=== PATIENT | female | born 1960 | race African-American/Black ===

== ENCOUNTER 2016-11-01 23:38 | Emergency (ER) | payer MEDICAID ==
[~2016-11-01] VITALS: Ht 170.2 cm; Wt 131.5 kg
[~2016-11-01 23:38] MED LIST: ELIMITE 5% CREA60 GM TOPIC; FLOXIN OTIC10 DROP LEFT EAR; HYDROCODON-ACE1 EA15 ORAL; IBUPROFEN600 MG ORAL; ILOTYCIN3.5 GM CONJUNC; NAPROSYN500 M1 ORAL; NEURONTIN100 MG ORAL; NKM; NORCO 5-325 TA1 EAC1 ORAL; POLYTRIM OP SOL10 ML OPHTHALM
[2016-11-01] MEDS ORDERED: NKM (23:50)
--- NOTE | 2016-11-02 00:07 | Emergency Room Report ---
History of Present Illness General Chief Complaint: Chest Pain Source: Patient Present Illness HPI This is a 56-year-old female with no past medical history she presents with chief complaint of cough congestion and chest pain. Onset for 7 days. She has no fever or chills. Denies any diaphoresis. Denies any radiation. Denies any exertional component. Worse with inspiration. Worse with lying flat. Allergies: Coded Allergies: PENICILLINS (Verified Allergy, Unknown, 11/01/16) Patient History Past Medical History: see triage record, old chart reviewed Past Surgical History: other Pertinent Family History: none Social History: Denies: smoking Last Menstrual Period: post menapausal Now: No Immunizations: other Reviewed Nursing Documentation: PMH: Agreed, PSxH: Agreed Nursing Documentation-PMH Past Medical History: No Stated History Hx Cardiac Problems: No Hx Hypertension: No Hx Pacemaker: No Hx Asthma: No Hx COPD: No Hx Diabetes: No Hx Cancer: No Hx Gastrointestinal Problems: No Hx Dialysis: No Hx Neurological Problems: No Hx Cerebrovascular Accident: No Hx Seizures: No Review of Systems Eye: Denies: blurred vision, eye pain ENT: Reports: nose congestion, Denies: ear pain, throat swelling Respiratory: Reports: cough, shortness of breath Cardiovascular: Denies: chest pain, palpitations Gastrointestinal: Denies: abdominal pain, diarrhea, nausea, vomiting Musculoskeletal: Denies: back pain, joint pain Skin: Denies: rash Neurological: Denies: headache, numbness Endocrine: Denies: increased thirst, increased urine Hematologic/Lymphatic: Denies: easy bruising All Other Systems: negative except mentioned in HPI Physical Exam Vital Signs Date Time Temp Pulse Resp B/P Pulse Ox O2 Delivery O2 Flow Rate FiO2 11/01/16 23:44 97.7 91 16 126/74 95 Room Air vitals normal Sp02 EP Interpretation: reviewed, normal General Appearance: well appearing, no apparent distress, alert Head: normocephalic, atraumatic Eyes: bilateral eye EOMI, bilateral eye PERRL ENT: hearing grossly normal, normal pharynx Neck: full range of motion, supple, no meningismus Respiratory: chest non-tender, lungs clear, normal breath sounds Cardiovascular #1: regular rate, rhythm, no murmur Gastrointestinal: normal bowel sounds, non tender, no mass, no organomegaly, no bruit, non-distended Musculoskeletal: back normal, gait/station normal, normal range of motion Neurologic: alert, oriented x3 Psychiatric: mood/affect normal Skin: warm/dry Medical Decision Making Diagnostic Impression: Primary Impression: Chest pain Qualified Codes: R07.1 - Chest pain on breathing Additional Impression: Upper respiratory infection, acute ER Course Is a 56-year-old female with upper respiratory infection. Most likely viral. We'll treat symptomatically. I will go ahead and write for antibiotics but told patient to hold off for 3 days. Not better going to let. No evidence of ACS, pneumonia, PE to name a few. EKG Diagnostic Results Rate: normal Rhythm: NSR ST Segments: no acute changes Rhythm Strip Diag. Results EP Interpretation: yes Rate: 75 Rhythm: NSR, no PVC's, no ectopy Last Vital Signs Date Time Temp Pulse Resp B/P Pulse Ox O2 Delivery O2 Flow Rate FiO2 11/01/16 23:44 97.7 91 16 126/74 95 Room Air Status: improved Disposition: HOME, SELF-CARE Condition: Stable Scripts Azithromycin* (ZITHROMAX*) 250 Mg Tablet 250 MG ORAL DAILY, #6 TAB 0 Refills Take two tablets by mouth today, then take one tablet by mouth daily for four days Prov: JENI CLAYTON M.D. 11/02/16 Codeine/Promethazine Hcl* (PROMETHAZINE-CODEINE SYRUP*) 118 Ml Syrup 10 ML ORAL Q6H Y for For Cough, #120 ML 0 Refills Prov: JENI CLAYTON M.D. 11/02/16 Albuterol Sulfate* (ALBUTEROL SULFATE MDI*) 8.5 Gm Hfa.aer.ad 2 PUFF INH Q4H Y for cough/wheezing, #1 EA 0 Refills Prov: JENI CLAYTON M.D. 11/02/16 Additional Instructions: Followup your Dr. in 3-5 days. Return if symptom worsen. If spiking a fever or not better within 3 days, fill antibiotic prescription. JENI CLAYTON M.D. Nov 02, 2016 00:07
[2016-11-02] MEDS ORDERED: PROMETHAZINE-C118 M1 ORAL (00:15)
[2016-11-02] MEDS ORDERED: ALBUTEROL SULF8.5 GM INH (00:15)
[2016-11-02] MEDS ORDERED: AZITHROMYCIN250 MG ORAL (00:17)
[2016-11-02 00:27] VITALS: BP 126/74
--- NOTE | 2016-11-07 10:32 | Cardiology Report ---
APPROVED REPORT EKG Measurement Heart [id number] Normal sinus rhythm Normal ECG
== END 2016-11-02 00:27 | disposition home or self-care (01) ==
LOC: EMR 11-02 00:13
DX: R07.1 Chest pain on breathing (principal); J06.9 Acute upper respiratory infection, unspecified; R05 Cough; R09.89 Other specified symptoms and signs involving the circulatory and respiratory systems; R07.9 Chest pain, unspecified; Z88.0 Allergy status to penicillin; R09.81 Nasal congestion; R06.02 Shortness of breath
CPT/HCPCS: 93005; 99283

== ENCOUNTER 2017-05-21 01:05 | Emergency (ER) | payer MEDICAID ==
[~2017-05-21] VITALS: Ht 172.7 cm; Wt 132.9 kg
[~2017-05-21 01:05] MED LIST changes: +ALBUTEROL SULF8.5 GM INH; +AZITHROMYCIN250 MG ORAL; +PROMETHAZINE-C118 M1 ORAL
[2017-05-21 01:40] VITALS: BP 137/77
[2017-05-21] MEDS ORDERED: Ketorolac 60mg Inj IM ONE (01:45)
[2017-05-21] MEDS ORDERED: ASPERCREME 1035.4 GM TP (02:30)
[2017-05-21] MEDS ORDERED: VITAMIN C500 M1 ORAL (02:30)
[2017-05-21 02:45] VITALS: BP 135/78
--- NOTE | 2017-05-21 03:02 | Emergency Room Report ---
History of Present Illness General Chief Complaint: Pain Source: Patient Present Illness HPI Is a 56-year-old female presented after increased bilateral ankle pain. This reports having gradual onset of symptoms. Patient reported having prior ankle sprain many years ago. She denied recent trauma. She stated that she had gradual worsening pain. She taking ibuprofen without improvement. She she denied any numbness or weakness. Allergies: Coded Allergies: PENICILLINS (Verified Allergy, Unknown, 11/01/16) Patient History Past Medical History: see triage record Reviewed Nursing Documentation: PMH: Agreed, PSxH: Agreed Nursing Documentation-PMH Past Medical History: No Stated History Hx Cardiac Problems: No Hx Hypertension: No Hx Pacemaker: No Hx Asthma: No Hx COPD: No Hx Diabetes: No Hx Cancer: No Hx Gastrointestinal Problems: No Hx Dialysis: No Hx Neurological Problems: No Hx Cerebrovascular Accident: No Hx Seizures: No Review of Systems All Other Systems: negative except mentioned in HPI Physical Exam Vital Signs Date Time Temp Pulse Resp B/P Pulse Ox O2 Delivery O2 Flow Rate FiO2 05/21/17 01:33 98.1 67 15 137/77 100 Room Air General Appearance: well appearing, no apparent distress, alert, GCS 15 Head: normocephalic, atraumatic ENT: hearing grossly normal, normal voice Neck: full range of motion, supple Respiratory: no respiratory distress, speaking full sentences Cardiovascular #1: normal inspection Musculoskeletal: normal inspection, back normal, digits/nails normal, gait/ station normal, no calf tenderness Neurologic: normal inspection, alert, oriented x3, responsive, telephone technician III-XII nml as tested, normal gait Psychiatric: mood/affect normal Skin: no rash Medical Decision Making Diagnostic Impression: Primary Impression: Bilateral ankle pain ER Course Patient presented for ankle pain. Differential diagnosis included wasn't limited to fracture, arthritis, osteomyelitis, sprain among others. Patient's benign exam and does not appear to require any laboratory testing at this time. The ankle x-ray 3 views interpreted by me showed normal Without evident fracture. The patient was given Toradol injection. The Rubén wrap was applied. Patient is advised followup with her primary care physician.The patient is advised to follow up with primary care doctor in 1-2 days. Patient is advised to return if any worsening condition or if any changes in status that are concerning. Last Vital Signs Date Time Temp Pulse Resp B/P Pulse Ox O2 Delivery O2 Flow Rate FiO2 05/21/17 02:19 98.0 05/21/17 01:40 67 15 137/77 100 Room Air Status: improved Disposition: HOME, SELF-CARE Condition: Stable Scripts Trolamine Salicylate/Aloe Vera (ASPERCREME 10% CREAM) 35.4 Gm Cream..g. 35.4 GM TP DAILY, #35 GM Prov: Rosalino Sullivan 05/21/17 Ascorbic Acid* (VITAMIN C*) 500 Mg Tablet 500 MG ORAL DAILY, #30 TAB 0 Refills Prov: Rosalino Sullivan 05/21/17 Patient Instructions: Ankle Pain Rosalino Sullivan May 21, 2017 03:02
--- NOTE | 2017-05-21 09:07 | Diagnostic Imaging Report ---
Indication: PAIN Technique: XRAY ANKLE MIN 3VWS RIGHT Comparison: None. Findings: Ankle mortise is intact. No fracture. No bone destruction. There is minimal soft tissue swelling laterally. Posterior and plantar calcaneal enthesophytes are present. Impression: Calcaneal enthesophytes. Minimal soft tissue swelling. Otherwise negative.
== END 2017-05-21 02:45 | disposition home or self-care (01) ==
LOC: EMR 01:42
DX: M25.572 Pain in left ankle and joints of left foot (principal); M25.571 Pain in right ankle and joints of right foot; Z88.0 Allergy status to penicillin
CPT/HCPCS: 29540; 96372; 99284